=== PATIENT | female | born 1990 | race Caucasian/White ===

== ENCOUNTER 2021-03-21 12:13 | Emergency (ER) | payer BC ==
[2021-03-21 14:59] LABS: Urine Blood Negative (Negative); Urine Glucose Negative (Negative); Urine Protein Negative (Negative); Urine Specific Gravity 1.015 (1.005-1.030)
--- NOTE | 2021-03-21 15:13 | RAD REPORT ---
EXAM DESCRIPTION: RAD - Chest Single View - 03/21/2021 2:37 pm CLINICAL HISTORY: SOB COMPARISON: None TECHNIQUE: AP portable chest image was obtained 03/21/2021 2:37 pm . FINDINGS: Interstitial and minimal alveolar opacities are present. No significant infiltrative disea se identifiable. No failure or volume overload. Heart and vasculature are normal. No measurable pleur al effusion and no pneumothorax. No acute bony abnormality seen. No acute aortic findings suspected. IMPRESSION: Minimal lung parenchymal opacification. Given the patient provided history, mild COVID-1 9 pneumonia is possible.
[2021-03-21 15:40] LABS: Absolute Lymphocytes (CBC) 1.4 K/uL (0.7-4.9); Basophils % 0.5 % (0-1.3); Hematocrit 39.6 % (36.0-45.0); Lymphocytes % 19.7 % (15.3-44.8); MPV 8.9 fL (7.6-11.3); RBC Red Blood Cell Count 4.58 M/uL (3.86-4.86)
[2021-03-21 16:03] LABS: Urine Specific Gravity/Preg 1.015 (1.005-1.030)
[2021-03-21] MEDS ORDERED: BENZONATATE 100 MG CAP PO ONE (16:04)
[2021-03-21 16:17] LABS: ALT/SGPT 44 U/L (12-78); AST/SGOT 31 U/L (15-37); Alkaline Phosphatase 64 U/L (45-117); BUN Blood Urea Nitrogen 6 mg/dL (7-18); Bicarbonate 24 mmol/L (21-32); Bilirubin Direct 0.1 mg/dL (0-0.2); Bilirubin Total 0.5 mg/dL (0.2-1.0); Ferritin 81.8 ng/mL (8-388); Glucose Level 75 mg/dL (74-106); Magnesium 2.1 mg/dL (1.8-2.4); Potassium 3.8 mmol/L (3.5-5.1); Protein, Total 7.6 g/dL (6.4-8.2); Sodium Level 141 mmol/L (136-145)
[2021-03-21 16:53] LABS: Anisocytosis 1+; Blood Morphology Comment NOTED (NOT SEEN); Platelet Estimate ADEQ; Poikilocytosis 1+
[2021-03-21] MEDS ORDERED: CASIRIVIMAB/IMDEVIMAB 10 ML VIAL ONE (17:32)
[2021-03-21] MEDS ORDERED: NA CHLORIDE 0.9% 250 ML ONE (17:32)
--- NOTE | 2021-03-21 18:33 | EDPHYS ---
Physician Documentation [facility] Name: Angella Dean Age: 31 yrs Sex: Female : 1990 Arrival Date: 03/21/2021 Time: 12:17 Bed 10 Private MD: SARMAD Physician Jackson Alexis HPI: 03/21 15:05 This 31 yrs old Female presents to ER via Ambulatory with complaints of cp Shortness Of Breath - covid+. 15:05 The patient has shortness of breath with light activity. cp 15:05 Onset: The symptoms/episode began/occurred gradually. Duration: The symptoms are cp continuous, and are steadily getting worse. The patient's shortness of breath is aggravated by light activity. Associated signs and symptoms: Pertinent positives: non-productive cough, Pertinent negatives: chest pain, diaphoresis, dizziness, fever. Patient reports testing positive for COVID-19 this past Monday, with mild symptoms starting . Patient reports testing positive for COVID-19 in the past and receiving vaccine. 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 - Social history:: Smoking status: Patient denies any tobacco usage or history of. ROS: 15:10 Constitutional: Positive for body aches, Negative for chills, fever, poor PO intake. cp 15:10 Eyes: Negative for injury, pain, redness, and discharge. cp 15:10 ENT: Negative for ear pain, sore throat, difficulty swallowing, difficulty handling secretions. 15:10 Cardiovascular: Negative for chest pain, edema, palpitations. 15:10 Respiratory: Positive for cough, with no reported sputum, shortness of breath, on exertion. Negative for wheezing. 15:10 Abdomen/GI: Positive for nausea, Negative for abdominal pain, vomiting, diarrhea, constipation. 15:10 Neuro: Negative for dizziness, headache, syncope, weakness. 15:10 All other systems are negative. Exam: 15:15 Constitutional: The patient appears in no acute distress, alert, awake, cp non-diaphoretic, non-toxic, well developed, well nourished, obese. 15:15 Head/Face: Normocephalic, atraumatic. cp 15:15 Eyes: Periorbital structures: appear normal, Conjunctiva: normal, no exudate, no injection, Sclera: no appreciated abnormality, Lids and lashes: appear normal, bilaterally. 15:15 ENT: External ear(s): are unremarkable, Nose: is normal, Mouth: Lips: moist, Oral mucosa: moist, Posterior pharynx: Airway: no evidence of obstruction, patent. 15:15 Neck: ROM/movement: is normal, is supple, no meningismus, no nuchal rigidity. 15:15 Chest/axilla: Inspection: normal. 15:15 Cardiovascular: Rate: normal, Rhythm: regular, Edema: is not appreciated, JVD: is not appreciated. 15:15 Respiratory: the patient does not display signs of respiratory distress, Respirations: normal, no use of accessory muscles, no retractions, labored breathing, is not present, Breath sounds: bronchial sounds, that are mild, are heard diffusely, decreased breath sounds, are not appreciated, stridor, is not appreciated, wheezing: is not appreciated. 15:15 Abdomen/GI: Exam negative for discomfort, distension, guarding, Inspection: abdomen appears normal. 15:15 Back: pain, is absent, ROM is normal. 15:15 Neuro: Orientation: to person, place \T\ time. Mentation: is normal, Motor: moves all fours, strength is normal. 16:52 ECG was reviewed by the Attending Physician. cp Vital Signs: 13:05 BP 121 / 99; Pulse 84; Resp 20; Temp 99.0(O); Pulse Ox 99% on R/A; Weight 99.79 kg (R); kg Height 5 ft. 8 in. (172.72 cm) (R); Pain 0/10; 15:37 BP 112 / 66; Pulse 77; Resp 20; Pulse Ox 97% on R/A; em1 13:05 Body Mass Index 33.45 (99.79 kg, 172.72 cm) kg MDM: 14:55 Patient medically screened. cp 16:00 Differential diagnosis: Bronchitis Chronic Obstructive Pulmonary Disease pneumonia, cp Pneumothorax pulmonary edema, Pulmonary Embolism Sepsis. 18:33 Data reviewed: vital signs, nurses notes, lab test result(s), EKG, radiologic studies, cp plain films. 18:33 Test interpretation: by ED physician or midlevel provider: ECG, plain radiologic cp studies. Counseling: I had a detailed discussion with the patient and/or guardian regarding: the historical points, exam findings, and any diagnostic results supporting the discharge/admit diagnosis, lab results, radiology results, to return to the emergency department if symptoms worsen or persist or if there are any questions or concerns that arise at home. Response to treatment: the patient's symptoms have mildly improved after treatment, VSS. Symptoms improved with IV fluids and meds. Patient appears non-toxic and no signs of respiratory distress. Patient maintains oxygen sats 97% on room air. 03/21 14:59 Order name: Urine Dipstick-Ancillary; Complete Time: 15:44 EDMS 03/21 15:04 Order name: Basic Metabolic Panel; Complete Time: 16:18 cp 03/21 17:01 Interpretation: Normal except: CL 111; BUN 6. cp 03/21 15:04 Order name: CBC with Diff; Complete Time: 17:01 cp 03/21 17:01 Interpretation: Normal except: MN% 16.9. cp 03/21 15:04 Order name: LFT's; Complete Time: 16:18 cp 03/21 15:04 Order name: Magnesium; Complete Time: 16:18 cp 03/21 15:04 Order name: CRP; Complete Time: 16:18 cp 03/21 17:01 Interpretation: Abnormal: C-REACTIVE PROT 26.90. cp 03/21 14:26 Order name: Chest Single View; Complete Time: 15:44 EDMS 03/21 15:04 Order name: Ferritin; Complete Time: 16:18 cp 03/21 15:19 Order name: Urine --Ancillary (enter results); Complete Time: 16:18 eb 03/21 16:52 Order name: Manual Differential; Complete Time: 17:01 EDMS 03/21 15:04 Order name: Urine Test (obtain specimen); Complete Time: 15:17 cp 03/21 15:04 Order name: EKG; Complete Time: 15:04 cp 03/21 15:04 Order name: Cardiac monitoring; Complete Time: 17:54 cp 03/21 15:04 Order name: EKG - Nurse/Tech; Complete Time: 17:54 cp 03/21 15:04 Order name: IV Saline Lock; Complete Time: 15:30 cp 03/21 15:04 Order name: Labs collected and sent; Complete Time: 15:30 cp 03/21 15:04 Order name: O2 Per Protocol; Complete Time: 17:54 cp 03/21 15:04 Order name: O2 Sat Monitoring; Complete Time: 17:54 cp EC:52 Rate is 75 beats/min. Rhythm is regular. TX interval is normal. QRS interval is normal. cp QT interval is normal. T waves are Inverted in leads III, V2, V3. Interpreted by me. Reviewed by me. Administered Medications: 15:48 Drug: Tessalon Perle (benzonatate) 200 mg Route: PO; iw 17:25 Drug: REGEN-COV Dose Pack 120 mg/mL-120 mg/mL (EUA) 260 ml Route: IV; Rate: calculated iw rate; Site: right forearm; 18:31 Drug: SOLU-Medrol (methylPrednisoLONE) 125 mg Route: IVP; Site: right forearm; iw 18:31 Drug: Ibuprofen 800 mg Route: PO; iw Disposition: 03/22 07:46 Co-signature as Attending Physician, Jackson Alexis MD I agree with the assessment and erika plan of care. Disposition Summary: 03/21/21 18:33 Discharge Ordered Location: Home cp Problem: new cp Symptoms: have improved cp Condition: Stable cp Diagnosis - Other viral pneumonia cp - SARS-associated coronavirus as the cause of diseases classified elsewhere cp Followup: cp - With: Private Physician - When: 2 - 3 days - Reason: Worsening of condition Discharge Instructions: - Discharge Summary Sheet cp - Form - Excuse from Work, School, or Physical Activity cp - Frequently Asked Questions About COVID-19 Vaccination - [facility] cp - COVID-19: Quarantine vs. Isolation - [facility] cp - Prevent the Spread of COVID-19 if You Are Sick - [facility] cp Forms: - Medication Reconciliation Form cp - Thank You Letter cp - Antibiotic Education cp - Prescription Opioid Use cp Prescriptions: - albuterol sulfate 90 mcg/actuation Inhalation HFA aerosol inhaler - inhale 2 puff by INHALATION route every 6 hours; 1 Inhaler; Refills: 0, Product cp Selection Permitted - Zofran 4 mg Oral Tablet - take 1 tablet by ORAL route every 12 hours As needed; 20 tablet; Refills: 0, cp Product Selection Permitted - Tessalon Perles 100 mg Oral Capsule - take 1 capsule by ORAL route every 8 hours As needed; 30 capsule; Refills: 0, cp Product Selection Permitted - Zithromax Z-Keith 250 mg Oral Tablet - take 1 tablet by ORAL route as directed for 5 days Day 1 - take two (2) tablets cp one time. Day 2, 3, 4 , 5 take one (1) tablet once daily.; 6 tablet; Refills: 0, Product Selection Permitted - Prednisone 20 mg Oral Tablet - take 2 tablets by ORAL route once daily for 5 days; 10 tablet; Refills: 0, cp Product Selection Permitted - ivermectin 3 mg Oral tablet - take 5 tablet by ORAL route every other day; 10 tablet; Refills: 0, Product cp Selection Permitted Signatures: Dispatcher [employer] EDIL Jackson Alexis MD MD cha Williams, Irene, RN RN Jackson Ag PA PA cp Ivette Zapien, ALTON RN kg Corrections: (The following items were deleted from the chart) 03/21 13:10 13:07 Allergies: No Known Allergies; kg kg 14:26 13:14 Chest Pa And Lat (2 Views)+[email or web address] ordered. EDIL EDMS
--- NOTE | 2021-03-21 18:33 | ER ---
Nurse's Notes [facility] Name: Angella Dean Age: 31 yrs Sex: Female : 1990 Arrival Date: 03/21/2021 Time: 12:17 Bed 10 Private MD: Diagnosis: Other viral pneumonia;SARS-associated coronavirus as the cause of diseases classified elsewhere Presentation: 03/21 13:05 Chief complaint: Patient states: Cough, SOB, Fever x 2 days. COVID + 03/19. Coronavirus kg screen: Client denies travel out of the [place] in the last 14 days. At this time, unable to obtain information related to travel outside the [place] Ebola Screen: Patient negative for fever greater than or equal to 101.5 degrees Fahrenheit, and additional compatible Ebola Virus Disease symptoms Patient denies exposure to infectious person. Patient denies travel to an Ebola-affected area in the 21 days before illness onset. Initial Sepsis Screen: Does the patient meet any 2 criteria? No. Patient's initial sepsis screen is negative. Does the patient have a suspected source of infection? No. Patient's initial sepsis screen is negative. Risk Assessment: Do you want to hurt yourself or someone else? Patient reports no desire to harm self or others. Onset of symptoms was March 19, 2021. 13:05 Method Of Arrival: Ambulatory kg 13:05 Acuity: TAMIKA 4 kg 15:34 Acuity: TAMIKA 3 iw Triage Assessment: 13:07 General: Appears in no apparent distress. Behavior is calm, cooperative, appropriate kg for age, quiet. Pain: Denies pain. Respiratory: Reports shortness of breath at rest on exertion cough that is non-productive, Onset: The symptoms/episode began/occurred yesterday, the patient has mild shortness of breath. 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 - Social history:: Smoking status: Patient denies any tobacco usage or history of. Screenin:11 Abuse screen: Denies threats or abuse. Denies injuries from another. Nutritional kg screening: No deficits noted. Tuberculosis screening: No symptoms or risk factors identified. Fall Risk None identified. Assessment: 13:14 Respiratory: Airway is patent Trachea midline Respiratory effort is even, unlabored. kg Vital Signs: 13:05 BP 121 / 99; Pulse 84; Resp 20; Temp 99.0(O); Pulse Ox 99% on R/A; Weight 99.79 kg (R); kg Height 5 ft. 8 in. (172.72 cm) (R); Pain 0/10; 15:37 BP 112 / 66; Pulse 77; Resp 20; Pulse Ox 97% on R/A; em1 13:05 Body Mass Index 33.45 (99.79 kg, 172.72 cm) kg ED Course: 12:17 Patient arrived in ED. as 13:07 Triage completed. kg 13:07 Arm band placed on left wrist. kg 13:11 Patient has correct armband on for positive identification. kg 14:37 Chest Single View In Process Unspecified. EDMS 14:50 Jackson Ag PA is PHCP. cp 14:50 Jackson Alexis MD is Attending Physician. cp 15:02 Kylah Vang, RN is Primary Nurse. iw 15:30 Initial lab(s) drawn, by me, sent to lab. Inserted saline lock: 20 gauge in right em1 forearm, using aseptic technique. Blood collected. 16:45 EKG done, by ED staff, reviewed by Jackson DE LA GARZA. mb4 Administered Medications: 15:48 Drug: Tessalon Perle (benzonatate) 200 mg Route: PO; iw 17:25 Drug: REGEN-COV Dose Pack 120 mg/mL-120 mg/mL (EUA) 260 ml Route: IV; Rate: calculated iw rate; Site: right forearm; 18:31 Drug: SOLU-Medrol (methylPrednisoLONE) 125 mg Route: IVP; Site: right forearm; iw 18:31 Drug: Ibuprofen 800 mg Route: PO; iw Outcome: 18:33 Discharge ordered by . cp 18:54 Patient left the ED. iw Signatures: Dispatcher [employer] EDMS Ham, Dorinda as Taj, Kylah, RN RN iw Ham, Emir em1 Jackson Ag PA PA cp Baxter, Mackenzie mb4 Ivette Zapien RN RN kg Corrections: (The following items were deleted from the chart) 13:10 13:07 Allergies: No Known Allergies; kg kg
[2021-03-21] MEDS ORDERED: METHYLPREDNISOLONE 125 MG INJ ONE (18:49)
[2021-03-21] MEDS ORDERED: IBUPROFEN 400 MG TAB ONE (18:49)
[2021-03-21 19:01] VITALS: TEMP 99
[2021-03-21 19:02] VITALS: BP 112/66; O2SAT 97
== END 2021-03-21 18:54 | disposition home or self-care (01) ==
LOC: ER 12:13
DX: J12.89 Other viral pneumonia (principal); Z88.8 Allergy status to other drugs, medicaments and biological substances
CPT/HCPCS: 93005; 85025; 80048; 36415; 83735; 81025; 80076; 81003; 82728; 86140; 71045; 96375; 96374; 99284; J7050; J2930

== ENCOUNTER 2022-02-06 21:25 | Emergency (ER) | payer BC, OTHER ==
[2022-02-06] MEDS ORDERED: MORPHINE 2 MG/ML SYR ONE (22:16)
[2022-02-06] MEDS ORDERED: NA CHLORIDE 0.9% 1,000 ML ONE (22:16)
[2022-02-06] MEDS ORDERED: ONDANSETRON 4 MG/2 ML VIAL ONE (22:16)
[2022-02-06] MEDS ORDERED: FAMOTIDINE 20 MG/2 ML VIAL IV ONE (22:16)
[2022-02-06 23:03] LABS: Absolute Lymphocytes (CBC) 3.3 K/uL (0.7-4.9); Hematocrit 41.1 % (36.0-45.0); Lymphocytes % 31.2 % (15.3-44.8); MCV 86.1 fL (80-100); RBC Red Blood Cell Count 4.78 M/uL (3.86-4.86)
[2022-02-06 23:06] LABS: Bilirubin Total 0.5 mg/dL (0.2-1.0); Potassium 4.1 mmol/L (3.5-5.1); Protein, Total 7.5 g/dL (6.4-8.2)
[2022-02-06 23:36] LABS: Urine Blood Negative (Negative); Urine Glucose Negative (Negative); Urine Protein Negative (Negative)
[2022-02-07] MEDS ORDERED: ONDANSETRON 4 MG/2 ML VIAL ONE (00:10)
[2022-02-07] MEDS ORDERED: CEFTRIAXONE 1000 MG/VIAL ONE (00:56)
[2022-02-07] MEDS ORDERED: NA CHLORIDE 0.9% 1,000 ML ONE (01:44)
--- NOTE | 2022-02-07 02:37 | RAD REPORT ---
EXAM DESCRIPTION: CTAbdomen Pelvis W Contrast - 02/07/2022 1:17 am CLINICAL HISTORY: Abdominal pain. Abdominal pain, acute, nonlocalized COMPARISON: No comparisons TECHNIQUE: Biphasic CT imaging of the abdomen and pelvis was performed with 100 ml non-ionic IV cont rast. All CT scans are performed using dose optimization technique as appropriate and may include automated exposure control or mA/KV adjustment according to patient size. FINDINGS: The lung bases are clear. The liver demonstrates no focal mass or biliary dilatation. Cholecystectomy clips. 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 The pancreas, adrenal glands and kidneys within normal limits. Postsurgic al changes are present about the stomach. No bowel obstruction, free air, intra-abdominal free fluid or abscess. Small volume pelvic free fluid . The appendix is normal. No evidence of significant lymphadenopathy. No suspicious bony findings. IMPRESSION: No acute intra-abdominal or pelvic finding. 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 There are adjacent surgical clips present.
--- NOTE | 2022-02-07 02:51 | ER ---
Nurse's Notes [facility] Name: Angella Dean Age: 31 yrs Sex: Female : 1990 Arrival Date: 02/06/2022 Time: 21:29 Bed 24 Private MD: Diagnosis: Abdominal pain, unspecified Presentation: 02/06 21:45 Chief complaint: Patient states: I had gastric sleeve surgery 3 weeks ago. I have had jb4 white stool the past 4 days, and bloating and pain. I told my surgeon and he told me to come to the ER. Coronavirus screen: At this time, the client does not indicate any symptoms associated with coronavirus-19. Ebola Screen: No symptoms or risks identified at this time. Initial Sepsis Screen: Does the patient meet any 2 criteria? No. Patient's initial sepsis screen is negative. Does the patient have a suspected source of infection? No. Patient's initial sepsis screen is negative. Risk Assessment: Do you want to hurt yourself or someone else? Patient reports no desire to harm self or others. Onset of symptoms was February 06, 2022. Transition of care: patient was not received from another setting of care. 21:45 Method Of Arrival: Ambulatory jb4 21:45 Acuity: TAMIKA 3 jb4 Triage Assessment: 02/07 03:16 General: Appears in no apparent distress. Behavior is calm, cooperative. bb Historical: - Allergies: 02/06 21:47 Skelaxin; jb4 21:47 Latex, Natural Rubber; jb4 - Home Meds: 21:47 None [Active]; jb4 - PMHx: 21:47 None; jb4 - PSHx: 21:47 Ovarian torsion; right ankle sx; Right rotator cuff sx; Tonsillectomy; Gastric sleeve; jb4 - Immunization history:: Adult Immunizations up to date. - Social history:: Smoking status: Patient denies any tobacco usage or history of. - Family history:: not pertinent. Screenin:53 Abuse screen: Denies threats or abuse. Denies injuries from another. Nutritional eh3 screening: No deficits noted. Tuberculosis screening: No symptoms or risk factors identified. Fall Risk None identified. Assessment: 22:53 Reassessment: No changes from previously documented assessment. Pain: Complains of pain eh3 in abdomen Pain does not radiate. Pain currently is 5 out of 10 on a pain scale. Quality of pain is described as crampy, pressure, tender, Pain began 2-3 days ago. Is continuous. GI: Bowel sounds present in right upper quadrant and left upper quadrant hypoactive in right lower quadrant and left lower quadrant Abd is soft Abdomen is tender to palpation in right upper quadrant and left upper quadrant. 02/07 00:57 Reassessment: Patient and/or family updated on plan of care and expected duration. Pain bb level reassessed. pt to CT via stretcher accompanied by instrumentation and controls technician. IV site intact, patent no erythema or edema noted. 03:15 Reassessment: Patient is alert, oriented x 3, equal unlabored respirations, skin bb warm/dry/pink. pt verbalized understanding of and agrees to plan of care discharge instructions given pt ambulated with steady gait to exit. Vital Signs: 02/06 21:45 BP 107 / 69; Pulse 74; Resp 16; Temp 98.3(TE); Pulse Ox 99% on R/A; Weight 99.79 kg jb4 (R); Height 5 ft. 8 in. (172.72 cm) (R); Pain 0/10; 22:55 BP 106 / 79; Pulse 75; Resp 16; Pulse Ox 100% on R/A; eh3 23:50 BP 106 / 79; Pulse 73; Resp 18; Pulse Ox 97% on R/A; 1 02/07 02:51 BP 96 / 68; Pulse 72; Resp 16; Temp 98.6; Pulse Ox 100% on R/A; 02/06 21:45 Body Mass Index 33.45 (99.79 kg, 172.72 cm) jb4 ED Course: 02/06 21:29 Patient arrived in ED. bp1 21:47 Triage completed. jb4 21:47 Arm band placed on right wrist. jb4 21:54 Jackson Alexis MD is Attending Physician. [facility] 22:[address], ALTON is Primary Nurse. [facility] 22:26 No provider procedures requiring assistance completed. Inserted saline lock: 20 gauge eh3 in left antecubital area, using aseptic technique. Blood collected. 22:51 CBC with Diff Sent. eh3 22:51 CMP Sent. eh3 22:51 Lipase Sent. eh3 22:53 Patient has correct armband on for positive identification. Placed in gown. Bed in low eh3 position. Call light in reach. Side rails up X2. 23:27 Troponin High Sensitivity Sent. eh3 23:51 No apparent distress. Resting quietly. Awaiting lab results, Awaiting CT Scan. [facility] 02/07 01:19 CT Abd/Pelvis - PO and IV Contrast In Process Unspecified. EDMT 02:49 Eligio Pfeiffer MD is Referral Physician. erika 03:16 IV discontinued, intact, bleeding controlled, No redness/swelling at site. Pressure bb dressing applied. Administered Medications: 02/06 22:30 Drug: Pepcid (famotidine) 20 mg Route: IVP; Site: left antecubital; 3 22:30 Drug: NS 0.9% 1000 ml Route: IV; Rate: 1 bolus; Site: left antecubital; eh3 22:30 Drug: morphine 2 mg Route: IVP; Infused Over: 4 mins; Site: left antecubital; 3 22:30 Drug: Zofran (Ondansetron) 4 mg Route: IVP; Site: left antecubital; 3 02/07 00:56 Drug: Rocephin (cefTRIAXone) 1 grams Route: IV; Rate: per protocol; Site: left bb antecubital; 01:01 Follow up: IV Status: Completed infusion; IV Intake: 10ml bb 01:40 Drug: NS 0.9% 1000 ml Route: IV; Rate: 1 bolus; Site: left antecubital; bb 02:36 Follow up: IV Status: Completed infusion; IV Intake: 975ml bb Medication: 02/06 22:53 VIS not applicable for this client. 3 Intake: 02/07 01:01 IV: 10ml; Total: 10ml. bb 02:36 IV: 975ml; Total: 985ml. bb Outcome: 02:50 Discharge ordered by . erika 03:16 Discharged to home ambulatory. bb 03:16 Condition: stable 03:16 Discharge instructions given to patient, Instructed on discharge instructions, follow up and referral plans. medication usage, Demonstrated understanding of instructions, follow-up care, medications, Prescriptions given X 2. 03:17 Patient left the ED. bb Signatures: Dispatcher [employer] EDMT Jackson Alexis MD MD cha Ballard, Brenda RN RN Yobani Irene, RN RN [email or web address] Charisse Whittaker [facility] Yazmin Rivers Katy Reagan [address], RN RN [id number]
--- NOTE | 2022-02-07 02:51 | EDPHYS ---
Physician Documentation [facility] Name: Angella Dean Age: 31 yrs Sex: Female : 1990 Arrival Date: 02/06/2022 Time: 21:29 Bed 24 Private MD: SARMAD Physician Jackson Alexis HPI: 02/07 02:44 This 31 yrs old Female presents to ER via Ambulatory with complaints of erika Abdominal Pain, Abdominal Bloating, White Stool. 02:44 The patient presents with abdominal pain in the upper abdomen, in the lower abdomen. erika Onset: The symptoms/episode began/occurred 3 day(s) ago. The symptoms do not radiate. Associated signs and symptoms: none. The symptoms are described as crampy. Modifying factors: The symptoms are alleviated by nothing, the symptoms are aggravated by nothing. Severity of pain: At its worst the pain was mild in the emergency department the pain is unchanged. The patient has not experienced similar symptoms in the past. Historical: - Allergies: 02/06 21:47 Skelaxin; jb4 21:47 Latex, Natural Rubber; jb4 - Home Meds: 21:47 None [Active]; jb4 - PMHx: 21:47 None; jb4 - PSHx: 21:47 Ovarian torsion; right ankle sx; Right rotator cuff sx; Tonsillectomy; Gastric sleeve; jb4 - Immunization history:: Adult Immunizations up to date. - Social history:: Smoking status: Patient denies any tobacco usage or history of. - Family history:: not pertinent. ROS: 02/07 02:44 Constitutional: Negative for fever, chills, and weight loss, Eyes: Negative for injury, erika pain, redness, and discharge, ENT: Negative for injury, pain, and discharge, Neck: Negative for injury, pain, and swelling, Cardiovascular: Negative for chest pain, palpitations, and edema, Respiratory: Negative for shortness of breath, cough, wheezing, and pleuritic chest pain, Back: Negative for injury and pain, : Negative for injury, bleeding, discharge, and swelling, MS/Extremity: Negative for injury and deformity, Skin: Negative for injury, rash, and discoloration, Neuro: Negative for headache, weakness, numbness, tingling, and seizure. Abdomen/GI: Positive for abdominal pain, white chalky stools. Exam: 02:44 Constitutional: This is a well developed, well nourished patient who is awake, alert, erika and in no acute distress. Head/Face: Normocephalic, atraumatic. Eyes: Pupils equal round and reactive to light, extra-ocular motions intact. Lids and lashes normal. Conjunctiva and sclera are non-icteric and not injected. Cornea within normal limits. Periorbital areas with no swelling, redness, or edema. ENT: Nares patent. No nasal discharge, no septal abnormalities noted. Tympanic membranes are normal and external auditory canals are clear. Oropharynx with no redness, swelling, or masses, exudates, or evidence of obstruction, uvula midline. Mucous membranes moist. Neck: Trachea midline, no thyromegaly or masses palpated, and no cervical lymphadenopathy. Supple, full range of motion without nuchal rigidity, or vertebral point tenderness. No Meningismus. Chest/axilla: Normal chest wall appearance and motion. Nontender with no deformity. No lesions are appreciated. Cardiovascular: Regular rate and rhythm with a normal S1 and S2. No gallops, murmurs, or rubs. Normal PMI, no JVD. No pulse deficits. Respiratory: Lungs have equal breath sounds bilaterally, clear to auscultation and percussion. No rales, rhonchi or wheezes noted. No increased work of breathing, no retractions or nasal flaring. Abdomen/GI: Soft, non-tender, with normal bowel sounds. No distension or tympany. No guarding or rebound. No evidence of tenderness throughout. Back: No spinal tenderness. No costovertebral tenderness. Full range of motion. Skin: Warm, dry with normal turgor. Normal color with no rashes, no lesions, and no evidence of cellulitis. MS/ Extremity: Pulses equal, no cyanosis. Neurovascular intact. Full, normal range of motion. Neuro: Awake and alert, GCS 15, oriented to person, place, time, and situation. Cranial nerves II-XII grossly intact. Motor strength 5/5 in all extremities. Sensory grossly intact. Cerebellar exam normal. Normal gait. Psych: Awake, alert, with orientation to person, place and time. Behavior, mood, and affect are within normal limits. 02:44 Abdomen/GI: Inspection: abdomen appears normal, Bowel sounds: normal, Palpation: abdomen is soft and non-tender, Liver: no appreciated palpable abnormalities, Hernia: not appreciated. Vital Signs: 02/06 21:45 BP 107 / 69; Pulse 74; Resp 16; Temp 98.3(TE); Pulse Ox 99% on R/A; Weight 99.79 kg jb4 (R); Height 5 ft. 8 in. (172.72 cm) (R); Pain 0/10; 22:55 BP 106 / 79; Pulse 75; Resp 16; Pulse Ox 100% on R/A; eh3 23:50 BP 106 / 79; Pulse 73; Resp 18; Pulse Ox 97% on R/A; bh1 02/07 02:51 BP 96 / 68; Pulse 72; Resp 16; Temp 98.6; Pulse Ox 100% on R/A; wm 02/06 21:45 Body Mass Index 33.45 (99.79 kg, 172.72 cm) jb4 MDM: 02/06 21:54 Patient medically screened. [facility] 02/07 02:48 Differential diagnosis: gastritis, non-specific abd pain, Peptic Ulcer Disease, urinary erika tract infection. Data reviewed: vital signs, nurses notes, lab test result(s), radiologic studies, CT scan. Data interpreted: campus monitor: rate is 73 beats/min, rhythm is regular, Pulse oximetry: on room air is 97 %. Test interpretation: by ED physician or midlevel provider: ECG, plain radiologic studies. Counseling: I had a detailed discussion with the patient and/or guardian regarding: the historical points, exam findings, and any diagnostic results supporting the discharge/admit diagnosis, the presence of at least one elevated blood pressure reading (>120/80) during this emergency department visit, lab results, radiology results, the need for outpatient follow up, for definitive care, a family practitioner, a circular knife cutter machine. 02/06 21:56 Order name: CBC with Diff; Complete Time: 00:25 [facility] 02/06 21:56 Order name: CMP; Complete Time: 23:53 [facility] 02/06 21:56 Order name: Lipase; Complete Time: 00:25 [facility] 02/06 23:01 Order name: Troponin High Sensitivity; Complete Time: 00:25 [facility] 02/06 23:36 Order name: Urine Dipstick-Ancillary; Complete Time: 00:25 [facility] 02/07 00:25 Order name: Urine Culture [facility] 02/06 21:56 Order name: CT Abd/Pelvis - PO and IV Contrast; Complete Time: 02:42 [facility] 02/06 21:56 Order name: IV Saline Lock; Complete Time: 22:26 [facility] 02/06 21:56 Order name: Labs collected and sent; Complete Time: 22:27 [facility] 02/06 21:56 Order name: Urine Dipstick-Ancillary (obtain specimen); Complete Time: 23:43 [facility] 02/06 21:56 Order name: Urine Test (obtain specimen); Complete Time: 23:43 [facility] 02/06 23:01 Order name: EKG; Complete Time: 23:04 [facility] 02/06 23:01 Order name: EKG - Nurse/Tech; Complete Time: 23:27 [facility] Administered Medications: 02/06 22:30 Drug: Pepcid (famotidine) 20 mg Route: IVP; Site: left antecubital; [facility] 22:30 Drug: NS 0.9% 1000 ml Route: IV; Rate: 1 bolus; Site: left antecubital; [facility] 22:30 Drug: morphine 2 mg Route: IVP; Infused Over: 4 mins; Site: left antecubital; [facility] 22:30 Drug: Zofran (Ondansetron) 4 mg Route: IVP; Site: left antecubital; [facility] 02/07 00:56 Drug: Rocephin (cefTRIAXone) 1 grams Route: IV; Rate: per protocol; Site: left antecubital; 01:01 Follow up: IV Status: Completed infusion; IV Intake: 10ml bb 01:40 Drug: NS 0.9% 1000 ml Route: IV; Rate: 1 bolus; Site: left antecubital; 02:36 Follow up: IV Status: Completed infusion; IV Intake: 975ml bb Disposition Summary: 02/07/22 02:50 Discharge Ordered Location: Home erika Problem: new erika Symptoms: have improved erika Condition: Stable erika Diagnosis - Abdominal pain, unspecified erika Followup: erika - With: Private Physician - When: 2 - 3 days - Reason: Recheck today's complaints, Continuance of care, Re-evaluation by your physician Followup: erika - With: Eligio Pfeiffer MD - When: 2 - 3 days - Reason: Recheck today's complaints, Continuance of care, Re-evaluation by your physician Discharge Instructions: - Abdominal Pain, Adult erika - Discharge Summary Sheet jb4 Forms: - Medication Reconciliation Form erika - Thank You Letter erika - SBAR form jb4 - Antibiotic Education [facility] - Prescription Opioid Use [facility] Prescriptions: - Zofran 4 mg Oral Tablet - take 1 tablet by ORAL route every 12 hours As needed; 20 tablet; Refills: 0, erika Product Selection Permitted - dicyclomine 20 mg Oral Tablet - take 1 tablet by ORAL route 4 times per day; 28 tablet; Refills: 0, Product [facility] Selection Permitted Signatures: Dispatcher [employer] EDJackson Tinsley MD MD cha Ballard, Brenda, RN RN Nav Hobbs, WIRE COMMUNICATIONS ENGINEER-C WIRE COMMUNICATIONS ENGINEER-Cla1 Yobani John RN RN jb Katy Reagan [facility]
[2022-02-07 03:32] VITALS: BP 96/68; TEMP 98.6; O2SAT 100
--- NOTE | 2022-02-07 13:46 | EKG ---
Test Date: 2022-02-06 Test Time: 23:22:03 Tour Driver: PATRICK MEASUREMENT RESULTS: Intervals: Rate: 85 [place]: 164 QRSD: 86 QT: 408 QTc: 485 [place]: P: 71 [place]: 164 QRS: 71 T: 69 INTERPRETIVE STATEMENTS: Normal sinus rhythm Prolonged QT Abnormal ECG Compared to ECG 03/21/2021 16:46:42 Prolonged QT interval now present ST (T wave) deviation no longer present Electronically Signed On 02-07-22 13:44:56 CDT by Moises Ridley
== END 2022-02-07 03:17 | disposition home or self-care (01) ==
LOC: ER 21:25
DX: R10.9 Unspecified abdominal pain (principal); Z88.8 Allergy status to other drugs, medicaments and biological substances; Z91.040 Latex allergy status; Z91.048 Other nonmedicinal substance allergy status
CPT/HCPCS: 96361; 93005; 87088; 85025; 87086; 36415; 81003; 84484; 83690; 80053; 74177; 96375; 96374; 99284; Q9967; J2270; J7030 ×2; J2405 ×2; J3490

== ENCOUNTER 2022-08-25 19:42 | Emergency (ER) | payer BC, OTHER ==
--- OUTSIDE RECORDS SUMMARY | 2022-08-25 19:46 | XMS REPORT | Continuity of Care Document ---
:1990 Author Organization [facility] t Address [address] [place] [address] Care Team Providers Name Role Phone Malick Brewer MD, Cosme Scott Primary Care Physician [phone] CIRO AUGUST Attending Clinician Unavailable ABRAM COOK Attending Clinician Unavailable Nataly Villareal Attending Clinician [phone] Nav BAKER, Alisa Damico Attending Clinician Bhakti Manning Attending Clinician Unavailable Earle Ayers Attending Clinician [phone] Bhakti Manning Admitting Clinician Unavailable Payers Payer Name Policy Type Policy Number Effective Date Expiration Date Fely justice [employer] [id number] 2021 2021 00:00:00 00:00:00 [employer] [id number] 2022 PREFERRED CARE 00:00:00 Problems Condition Condition Condition Status Onset Resolution Last Treating Co mments Source Name Details Category Date Date Treatment Clinician Date Altered Altered Problem 2015-03-01 Me moria bowel bowel 07-31 04:01:17 l function function 00:00: Jeremy nicole (finding) (finding) 00 07/31/2014 Problem 03/01/2015 <sup>1</serrano p>5-10 BMs A DAY, SOMETIMES LOOSE, SOMETIMES NORMAL [facility] ABDOMINAL/ ABDOMINAL Diagnosis Active 2013-11-22 Memoria BACK PAIN /BACK PAIN 18 16:46:00 l Active 00:00: Shady 10/15/2013 00 [facility] [place] Cyst of Cyst of Problem Resolve 2013-10-18 M emoria ovary ovary d 23:16:40 l (disorder) (disorder) He rmann Resolved Problem 10/18/2013 [facility] [place] Backache Backache Problem 2015-03-01 Memoria (finding) (finding) 04:01:17 l Problem [place] 03/01/2015 [facility] History of Past Illness Condition Condition Condition Status Onset Resolution Last Treating Co mments Source Name Details Category Date Date Treatment Clinician Date Discharge Problem 2013-10-18 2013-10-18 Memoria Diagnosis: Discharge 10-15 23:16:40 23:16:40 l Lumbar Diagnosis: 05:00: Jeremy n Back Pain, Lumbar 00 Pelvic Back Pain, Pain, Pelvic Ovarian Pain, Cyst Ovarian Cyst 10/15/2013 10/18/2013 [facility] Allergies, Adverse Reactions, Alerts Allergy Allergy Status Severity Reaction(s) Onset Inactive Treating Comm ents Source Name Type Date Date Clinician Latex Propensi Active Rash 2021-07 [facility] to [facility] adverse 00:00: Hospita reaction 00 l s to drug Mushroom Propensi Active Swelling Meth gloria ty to 4-11 st adverse 00:00: Hospita reaction 00 l s to drug Metaxalo Propensi Active Swelling Meth gloria ne ty to 4-11 st adverse 00:00: Hospita reaction 00 l s to drug Skelaxin Skelaxin Active Weal Memori a (disorder) jasmin Caruso mushroom mushroom Active Weal Memori a s s (disorder) jasmin Caruso Social History Social Habit Start Date Stop Date Quantity Comments Source Tobacco use and 2022-05-11 2022-05-11 Smokeless tobacco Me [facility] exposure 00:00:00 00:00:00 non-user Hospital Alcohol intake 2022-05-11 2022-05-11 Lifetime [facility] 00[facility]00 [facility]-drinker Hospital (finding) Sex Assigned At [birth year] [facility] 00:[facility]00 Hospital Smoking Status Start Date Stop Date Source Never smoked tobacco [facility] Social History 2013-10-16 01:28:18 2013-10-16 01:28:18 [facility] Medications Ordered Filled Start Stop Current Ordering Indication Dosage Frequency Signature Comments Components Source Medication Medication Date Date Medication? Clinician (SIG) Name Name jean claude 2021-07 Yes 325mg Q6H Take 1 Met hodi en 0-[address] (TYLENOL) 08:15: (325 mg Hospi ta 325 MG 43 total) by l tablet mouth every 6 (six) hours as needed for fever. [facility] [place] 290 mL, Memoria Medication 02-27 Patricia Soln-IV, l 12:25: IV, Once, Shady 00 first dose 02/27/15 7:25:00 CDT, stop date 02/27/15 7:25:00 CDT Misc No Tu 290 mL, Memoria Medication 02-27 Patricia Soln-IV, l 12:25: IV, Once, Shady 00 first dose 02/27/15 7:25:00 CDT, stop date 02/27/15 7:25:00 CDT propofol No Tu 60 mg = 6 Mem oria 02-27 Patricia mL, l 12:13: Emulsion, [place] 00 IV, Once, first dose 02/27/15 7:13:00 CDT, stop date 02/27/15 7:13:00 CDT propofol No Tu 60 mg = 6 Mem oria 02-27 Patricia mL, l 12:13: Emulsion, [place] 00 IV, Once, first dose 02/27/15 7:13:00 CDT, stop date 02/27/15 7:13:00 CDT propofol No Tu 60 mg = 6 Mem oria 02-27 Patricia mL, l 12:11: Emulsion, Shady 00 IV, Once, first dose 02/27/15 7:11:00 CDT, stop date 02/27/15 7:11:00 CDT propofol No Tu 60 mg = 6 Mem oria 7 Patricia mL, l 12:11: Emulsion, [place] 00 IV, Once, first dose 02/27/15 7:11:00 CDT, stop date 02/27/15 7:11:00 CDT propofol No Tu 60 mg = 6 Mem oria 7- Patricia mL, l 12:08: Emulsion, Shady 00 IV, Once, first dose 02/27/15 7:08:00 CDT, stop date 02/27/15 7:08:00 CDT propofol No Tu 60 mg = 6 Mem oria 7- Patricia mL, l 12:08: Emulsion, [place] 00 IV, Once, first dose 02/27/15 7:08:00 CDT, stop date 02/27/15 7:08:00 CDT propofol No Tu 60 mg = 6 Mem oria - Patricia mL, l 12:05: Emulsion, [place] 00 IV, Once, first dose 02/27/15 7:05:00 CDT, stop date 02/27/15 7:05:00 CDT propofol No Tu 60 mg = 6 Mem oria 02-27 Patricia mL, l 12:05: Emulsion, [place] 00 IV, Once, first dose 02/27/15 7:05:00 CDT, stop date 02/27/15 7:05:00 CDT lidocaine No Tu 3 mL, Memori a 02-27 Patricia Injection, l 12:02: IV, Once, Shady 00 first dose 02/27/15 7:02:00 CDT, stop date 02/27/15 7:02:00 CDT propofol No Tu 140 mg = Syd villa 02-27 Patricia 14 mL, l 12:02: Emulsion, Shady 00 IV, Once, first dose 02/27/15 7:02:00 CDT, stop date 02/27/15 7:02:00 CDT lidocaine No Tu 3 mL, Memori a 02-27 Patricia Injection, l 12:02: IV, Once, Shady 00 first dose 02/27/15 7:02:00 CDT, stop date 02/27/15 7:02:00 CDT propofol No Tu 140 mg = Syd villa 02-27 Patricia 14 mL, l 12:02: Emulsion, Shady 00 IV, Once, first dose 02/27/15 7:02:00 CDT, stop date 02/27/15 7:02:00 CDT Lidocaine No Matthew 0.2 mL, Me moria 2% 0.2 mL 02-27 You Injection, l IV Start 11:35: Subcutaneo [facility] maier [[facility]] us, Once PRN for other (see comment), first dose 02/27/15 6:35:00 CDT LR 1,000 mL No Matthew 1,000 mL, Memoria 02-27 You IV, 30 l 11:35: mL/hr, [place] 00 start date 02/27/15 6:35:00 CDT Lidocaine No Matthew 0.2 mL, Me moria 2% 0.2 mL 02-27 You Injection, l IV Start 11:35: Subcutaneo [facility] maier [[facility]] 00 us, Once PRN for other (see comment), first dose 02/27/15 6:35:00 CDT LR 1,000 mL No Matthew 1,000 mL, Memoria 02-27 You IV, 30 l 11:35: mL/hr, [place] 00 start date 02/27/15 6:35:00 CDT naproxen Yes 500 mg = 1 Mem oria 500 mg oral 3-19 tab, PO, l tablet 04:48: BID, Pain, Shaina nn 00 # 30 tab, 0 Refill(s) Acetaminoph Yes 1 tab, PO, Memoria en 325 MG / 3-19 Q6H, pain, l Hydrocodone 04:48: # 24 tab, H ermann Bitartrate 00 0 10 MG Oral Refill(s) Tablet [Nelson 10/325] naproxen Yes 500 mg = 1 Mem oria 500 mg oral 3-19 tab, PO, l tablet 04:48: BID, Pain, Shaina nn 00 # 30 tab, 0 Refill(s) Acetaminoph Yes 1 tab, PO, Memoria en 325 MG / 3-19 Q6H, pain, l Hydrocodone 04:48: # 24 tab, H ermann Bitartrate 00 0 10 MG Oral Refill(s) Tablet [Nelson 10/325] Morphine No 4 mg, 2 Memori a 3-19 mL, Route: l 04:24: IVP, Drug [place] 00 form: INJ, ONCE, Dosing Weight 104.545, kg, Priority: STAT, Start date: 10/15/13 23:24:00, Stop date: 10/15/13 23:24:00(S foreign as:MORPhin e Sulfate) Morphine 2014-0 No 4 mg, 2 Memori a 3-19 mL, Route: l 04:24: IVP, Drug Shady 00 form: INJ, ONCE, Dosing Weight 104.545, kg, Priority: STAT, Start date: 10/15/13 23:24:00, Stop date: 10/15/13 23:24:00(S foreign as:MORPhin e Sulfate) Zofran 2014-0 No 4 mg, Memoria 3-19 Route: l 02:09: IVP, ONCE, Dosing Weight 104.545, kg, Start date: 10/15/13 21:09:00, Stop date: 10/15/13 21:09:00 Morphine 2014-0 No 4 mg, Memoria 3-19 Route: l 02:09: IVP, ONCE, Dosing Weight 104.545, kg, Priority: STAT, Start date: 10/15/13 21:09:00, Stop date: 10/15/13 21:09:00 Ketorolac 2014-0 No 30 mg, Memori a 3-19 Route: l 02:09: IVP, ONCE, Dosing Weight 104.545, kg, Priority: STAT, Start date: 10/15/13 21:09:00, Stop date: 10/15/13 21:09:00 Orphenadrin 2014-0 No 60 mg, Syd villa e 3-19 Route: IV, l 02:09: ONCE, Dosing Weight 104.545, kg, Priority: STAT, Start date: 10/15/13 21:09:00, Stop date: 10/15/13 21:09:00 Zofran 2014-0 No 4 mg, Memoria 3-19 Route: l 02:09: IVP, ONCE, Dosing Weight 104.545, kg, Start date: 10/15/13 21:09:00, Stop date: 10/15/13 21:09:00 Morphine 2014-0 No 4 mg, Memoria 3-19 Route: l 02:09: IVP, ONCE, Shel[place] Dosing Weight 104.545, kg, Priority: STAT, Start date: 10/15/13 21:09:00, Stop date: 10/15/13 21:09:00 Ketorolac 2014-0 No 30 mg, Memori a 3-19 Route: l 02:09: IVP, ONCE, Shady Dosing Weight 104.545, kg, Priority: STAT, Start date: 10/15/13 21:09:00, Stop date: 10/15/13 21:09:00 Orphenadrin 2014-0 No 60 mg, Syd villa e 3- Route: IV, l 02:09: ONCE, Shady Dosing Weight 104.545, kg, Priority: STAT, Start date: 10/15/13 21:09:00, Stop date: 10/15/13 21:09:00 Vital Signs Vital Name Observation Time Observation Value Comments Source Body height 2022-05-11 13:17:00 172.7 cm [facility] Body weight 2022-05-11 13:17:00 86.183 kg [facility] BMI 2022-05-11 13:17:00 28.89 kg/m2 [facility] Respitory Rate 2015-02-27 13:15:00 Memori al Shday Systolic (mm Hg) 2015-02-27 13:15:00 Syd rial [place] Heart Rate 2015-02-27 12:45:00 [facility] [place] Respitory Rate 2015-02-27 12:45:00 Memori al [place] Systolic (mm Hg) 2015-02-27 12:45:00 Syd rial [place] Respitory Rate 2015-02-27 12:30:00 Memori al [place] Heart Rate 2015-02-27 12:30:00 [facility] [place] Systolic (mm Hg) 2015-02-27 12:30:00 Syd rial [place] Heart Rate 2015-02-27 12:20:00 [facility] [place] Temperature Oral (F) 2015-02-27 12:20:00 36.4 [facility] [place] Weight 2015-02-27 11:50:00 [facility] [place] Temperature Oral (F) 2015-02-27 11:50:00 36.5 [facility] [place] Height 2015-02-27 11:50:00 170.18 cm [facility] [place] Weight 2015-02-24 13:25:00 [facility] [place] Height 2015-02-24 13:25:00 169.8 cm [facility] [place] Temperature Oral (F) 2013-10-16 04:55:00 98.4 F [facility] [place] Heart Rate 2013-10-16 04:55:00 [facility] [place] Diastolic (mm Hg) 2013-10-16 04:55:00 Mem orial [place] Respitory Rate 2013-10-16 04:55:00 Memori al [place] Systolic (mm Hg) 2013-10-16 04:55:00 Syd rial [place] Height 2013-10-16 00:40:00 170.18 cm [facility] [place] BMI Calculated 2013-10-16 00:40:00 Memori al [place] Respitory Rate 2013-10-16 00:40:00 Memori al [place] Heart Rate 2013-10-16 00:40:00 [facility] [place] Diastolic (mm Hg) 2013-10-16 00:40:00 Mem orial [place] Systolic (mm Hg) 2013-10-16 00:40:00 Syd rial [place] Temperature Oral (F) 2013-10-16 00:40:00 98.6 F [facility] [place] Weight 2013-10-16 00:40:00 [facility] [place] Procedures Procedure Date / Time Performing Clinician Source Performed OCT, OPTIC NERVE - OU - 2022-05-11 13:35:56 [facility] BOTH EYES AUTOMATED VISUAL FIELD, 2022-05-11 13:35:52 [facility] EXTENDED - OU - BOTH EYES COLONOSCOPY FLEXIBLE; 2015-02-27 12:06:00 Matthew You Shady DIAGNOSTIC; INCL. COLLECTION OF SPECIMENS 41329 (N/A)<sup>1</sup> Ovarian cystectomy [facility] rekha [facility] TAMIKA<sup>2</sup> [facility]ST REMOVAL [facility] Plan of Care Planned Activity Planned Date Details Comments Source Future Scheduled 2022-08-25 COVID-[address] [facility] Test 19:45:09 (#1) [code = COVID-19 VACCINE (#1)] Future Scheduled 2022-08-25 [facility] 19[facility]45[facility]09 screening (procedure) [code = 137229976] Future Scheduled 2022-08-25 [facility] Test 19:45:09 malignant neoplasm of cervix (procedure) [code = 032427500] Future Scheduled 2022-08-25 [facility]ACCINE [facility] 19:45:09 [code = INFLUENZA VACCINE] Encounters Start End Encounter Admission Attending Care Care Encounter Source Date/Time Date/Time Type Type Clinicians Facility Department ID 2022-02-01 Outpatient [facility] [id number] [place] 08:16:52 [id number] [facility] 2022-01-29 Outpatient CARHILL, [facility] [id number] [place] 03:31:52 CIRO [id number] [facility] 2022-01-28 Outpatient CARHILL, [facility] [id number] [place] 09:09:25 CIRO [id number] [facility] 2022-01-19 Outpatient CARHILL, [facility] [id number] [place] 13:17:16 CIRO [id number] [facility] 2021-11-04 Outpatient CARHILL, [facility] [id number] [place] 16:12:28 CIRO [id number] [facility] 2022-07-08 2022-07-08 Emergency E BARTSOFF, [facility]SE [id number] 10:49:00 13:12:00 [facility] 2022-05-20 2022-05-20 Telephone Thrasher 1.2.840.1 [id number] Methodi 00:00:00 00:00:00 Madhuri, [address]391.1.[address] Nataly 3.430.2.7 Hospit a Tiff .3.090391 l .8 2022-05-20 2022-05-20 Orders Thrasher 1.2.840.1 [id number] Methodi 00:00:00 00:00:00 Only Madhuri, [address]13.1.[address] Nataly 3.430.2.7 Hospit a Tiff .3.981310 l .8 2022-05-16 2022-05-16 Telephone Alisa Tobar 1.2.840.1 [id number] Methodi 00:00:00 00:00:[address] 3.430.2.7 Hospit a .3.519483 l .8 2022-05-11 2022-05-11 Office Alisa Tobar 1.2.840.1 [id number] Methodi 08:00:00 10:36:03 [place] [address].1.[address] 3.430.2.7 Hospit a .3.274066 l .8 2022-05-11 2022-05-11 Outpatient ALISA TOBAR [facility] [id number] [place] 00:00:00 00:00:[address] 2021-06-21 2021-06-21 [id number] [facility] 12:00:00 12:00:[address] [place] [address] 2021-05-08 2021-05-08 Outpatient PRIV PRIV [id number] 1-2 [facility] 00:00:00 00:00:00 [id number] [facility] j[facility]min 2015-02-27 2015-02-27 Outpatient 2.16.840. 2.16.840.1. 2 [id number] Memoria 06:09:20 07:57:00 1.456786. 861815.3.20 l 3.20 81.1999 Jeremy n [address] [facility] 2015-02-27 2015-02-27 Outpatient nullFlavo [facility] [id number] Memoria 06:09:20 07:57:00 angela Caruso 2015-02-27 2015-02-27 Outpatient nullFlavo [facility] [id number] Memoria 06:09:20 07:57:00 angela Caruso 2015-01-16 2015-01-16 Outpatient 2.16.840. 2.16.840.1. 2 [id number] Memoria 08:38:32 23:59:59 1.526886. 778823.3.20 l .20 81.1999 Jeremy n [address] [facility] 2015-01-16 2015-01-16 Outpatient nullFlavo [facility] [id number] Memoria 08:38:32 23:59:59 r jasmin Caruso 2015-01-16 2015-01-16 Outpatient nullFlavo [facility] [id number] Memoria 08:38:32 23:59:59 r jasmin Caruso 2013-10-16 2013-10-16 EC nullFlavo [facility] [id number] Memoria 00:33:00 05:26:00 Emergency r Shady [id number] l [place] 4 [facility] 2013-10-16 2013-10-16 EC nullFlavo [facility] [id number] Memoria 00:33:00 05:26:00 Emergency r Shady [id number] [facility] [place] 4 [facility] 2013-10-15 2013-10-16 Outpatient Earle Ayers 2.16.840. 2.16.840. 1. [id number] 19:33:00 00:26:00 Rodrigue 1.608725. 758661.3.61 02 3.615.0.1 5.0.101 01 Results Test Description Test Time Test Comments Results Result Comments Source LABORATORY 2015-02-27 11:38:00 Test Item Value Reference Range Interpretation Comme nts urine beta hcg (test code = urine Negative, Control Present (2014 beta hcg) 06:38:00) [facility]VAN[facility]WTGT7927-91-43 11:38:00 Test Item Value Reference Range Interpretation Comments urine beta hcg (test Negative, Control code = urine beta hcg) Present (02/27/2015 06:38:00) [facility]APTDZ[facility]OPC2606-09-24 02:20:00 Test Item Value Reference Range Interpretation Comments AGAP (test code = AGAP) 9.0 10.0-20.0 [facility] HospitalBpnfrhtVQFCZGJBYKEA3560-23-81 02:20:00 Test Item Value Reference Range Interpretation Comments B/C Ratio (test code = B/C Ratio) 17 6-25 [facility] HospitalHpsonofALJISDXIDBVI9369-93-60 02:20:00 Test Item Value Reference Range Interpretation Comments Globulin (test code = Globulin) 3.7 2.0-4.0 [facility] HospitalQlsbkdcMEXMLMUINNRK9849-65-00 02:20:00 Test Item Value Reference Range Interpretation Comments A/G Ratio (test code = A/G Ratio) 1.0 0.7-1.6 [facility] HospitalKupwxmcJEDBKCVHUJJL3206-48-10 02:20:00 Test Item Value Reference Range Interpretation Comments eGFR (test code = eGFR) 129 [facility] HospitalJyrsrkjDMLXCOMVZRQM9524-71-17 02:20:00 Test Item Value Reference Range Interpretation Comments BUN (test code = BUN) 10 7-22 [facility] HospitalFulodwrTLACSAYKUMHU6018-15-60 02:20:00 Test Item Value Reference Range Interpretation Comments Creatinine Lvl (test code = Creatinine 0.6 0.5-1.4 Lvl) [facility] HospitalAwrmydcTKWLTFYYWIKB5443-43-15 02:20:00 Test Item Value Reference Range Interpretation Comments Glucose Lvl (test code = Glucose Lvl) 80 70-99 [facility] HospitalXtbhupbKUVRITYFKAKI5242-96-62 02:20:00 Test Item Value Reference Range Interpretation Comments Sodium Lvl (test code = Sodium Lvl) 140 135-145 [facility] HospitalLntgjotQUCUPFGTIXZU8708-62-17 02:20:00 Test Item Value Reference Range Interpretation Comments Potassium Lvl (test code = Potassium 4.0 3.5-5.1 Lvl) [facility] HospitalWghhtndTVTUAGVROOXQ9161-13-90 02:20:00 Test Item Value Reference Range Interpretation Comments CO2 (test code = CO2) 26 24-32 [facility] HospitalZbnoqpbKROBXUKQYGHI2171-51-78 02:20:00 Test Item Value Reference Range Interpretation Comments Calcium Lvl (test code = Calcium Lvl) 8.9 8.5-10.5 [facility] HospitalGgedkirMZPPOANTKRTP1978-20-04 02:20:00 Test Item Value Reference Range Interpretation Comments Total Protein (test code = Total 7.4 6.4-8.4 Protein) [facility] HospitalLsyidsmDKPNYBATRQZE7134-77-43 02:20:00 Test Item Value Reference Range Interpretation Comments Chloride Lvl (test code = Chloride Lvl) 109 95-109 [facility] HospitalKowfbbkJCWOWRZIVWYR5892-24-67 02:20:00 Test Item Value Reference Range Interpretation Comments Albumin Lvl (test code = Albumin Lvl) 3.7 3.5-5.0 [facility] HospitalLsfzxyqNCRPGWSMLLKN1824-80-21 02:20:00 Test Item Value Reference Range Interpretation Comments ALANINE AMINOTRANSFERASE 93 See_Comment [A utomated message] (test code = ALANINE The sys tem which AMINOTRANSFERASE) generated this result transmitted ref erence range: <=65. Th e reference range was not used to int erpret this result as normal/abnormal . [facility] HospitalZrehykwMXHPQWIYSJUS0959-86-65 02:20:00 Test Item Value Reference Range Interpretation Comments Alk Phos (test code = Alk Phos) 47 39-136 [facility] HospitalRdveqmjFFXJQHLPVOVB4620-00-68 02:20:00 Test Item Value Reference Range Interpretation Comments Bili Total (test code = Bili Total) 0.3 0.2-1.3 [facility] HospitalSsjsrzyMNXUOQLSIIFP6583-63-96 02:20:00 Test Item Value Reference Range Interpretation Comments ASPARTATE TRANSAMINASE 117 See_Comment [Aut omated message] (test code = ASPARTATE The s ystem which TRANSAMINASE) generated this result transmitted ref erence range: <=37. Th e reference range was not used to interpr et this result as normal/abnormal . [facility] [place] [facility]LfhtrmlAIBQTPVFMD4492-86-05 02:20:00 Test Item Value Reference Range Interpretation Comments Anisocyte (test code = 1+ *ABN*(10/15/2013 Anisocyte) 21:20:00 [facility] [place] [facility]EwkwlfjJCAKTEWUFM0563-67-36 02:20:00 Test Item Value Reference Range Interpretation Comments Basophils # (test code 0.0 See_Comment [Aut omated message] The = Basophils #) system which generated this result tra nsmitted reference range : <=0.2. The reference r camryn was not used to int erpret this result as normal/abnormal . [facility] [place] [facility] SoutheastSwtlukwACUCYGHRGM8346-04-74 02:20:00 Test Item Value Reference Range Interpretation Comments Lymphocytes (test code = Lymphocytes) 18.6 20.0-40.0 [facility] [place] [facility] SoutheastJnlwhatVIHBOKVPKB3885-50-77 02:20:00 Test Item Value Reference Range Interpretation Comments Segs (test code = Segs) 67.4 45.0-75.0 [facility] [place] [facility] SoutheastFucmajgPJAMQPMFMK0397-94-82 02:20:00 Test Item Value Reference Range Interpretation Comments Plt Morph (test code = Normal (10/15/2013 Plt Morph) 21:20:00 [facility] [place] [facility] SoutheastZokrvurXVDXMYTJMG1872-75-80 02:20:00 Test Item Value Reference Range Interpretation Comments Eosinophils (test code = 1.7 See_Comment [A utomated message] The Eosinophils) system which ge nerated this result tra nsmitted reference range : <=4.0. The reference r camryn was not used to int erpret this result as normal/abnormal . [facility] [place] [facility] SoutheastFtwspxoMBDWREAXRP7632-31-69 02:20:00 Test Item Value Reference Range Interpretation Comments Monocytes (test code = Monocytes) 12.2 2.0-12.0 [facility] [place] [facility] SoutheastFqydfizWGACPGQCRY2052-96-72 02:20:00 Test Item Value Reference Range Interpretation Comments Segs-Bands # (test code = Segs-Bands #) 6.4 1.5-8.1 [facility] [place] [facility] SoutheastTxujlxqLXIDLKCNBH0563-82-13 02:20:00 Test Item Value Reference Range Interpretation Comments Basophils (test code = 0.1 See_Comment [Aut omated message] The Basophils) system which ge nerated this result tra nsmitted reference range : <=1.0. The reference r camryn was not used to int erpret this result as normal/abnormal . [facility] [place] [facility] SoutheastGvggnihRDGZEVIUKJ9269-05-97 02:20:00 Test Item Value Reference Range Interpretation Comments Monocytes # (test code 1.2 See_Comment [Aut omated message] The = Monocytes #) system which generated this result tra nsmitted reference range : <=0.8. The reference r camryn was not used to int erpret this result as normal/abnormal . [facility] [place] [facility] SoutheastTqivznoUFXEATPCET1812-11-04 02:20:00 Test Item Value Reference Range Interpretation Comments Lymphocytes # (test code = Lymphocytes 1.8 1.0-5.5 #) [facility] [place] [facility] SoutheastVqfwsgjFAZTCNCJZT4673-71-72 02:20:00 Test Item Value Reference Range Interpretation Comments Eosinophils # (test code 0.2 See_Comment [A utomated message] The = Eosinophils #) system whic h generated this result tra nsmitted reference range : <=0.5. The reference r camryn was not used to int erpret this result as normal/abnormal . [facility] [place] [facility] SoutheastAdwxqaxCFQJYMTILK1891-41-15 02:20:00 Test Item Value Reference Range Interpretation Comments MPV (test code = MPV) 8.8 7.4-10.4 [facility] [place] [facility] SoutheastPsqsnwnNHUAWEBELT9780-98-06 02:20:00 Test Item Value Reference Range Interpretation Comments RDW (test code = RDW) 14.5 11.5-14.5 [facility] [place] [facility] SoutheastNwdcvbfNSNSPXKWKA6110-53-22 02:20:00 Test Item Value Reference Range Interpretation Comments MCH (test code = MCH) 28.5 pg 27.0-31.0 [facility] [place] [facility] SoutheastYsmdshkXOJDZWJDCM0677-96-43 02:20:00 Test Item Value Reference Range Interpretation Comments MCHC (test code = MCHC) 32.9 32.0-36.0 [facility] [place] [facility] SoutheastVcfupzgYVOPUXNJRC9226-47-88 02:20:00 Test Item Value Reference Range Interpretation Comments MCV (test code = MCV) 86.6 81.0-99.0 [facility] [place] [facility] SoutheastGgdonohNTSILXEYWA1054-70-35 02:20:00 Test Item Value Reference Range Interpretation Comments Hgb (test code = Hgb) 13.1 12.0-16.0 [facility] [place] [facility] SoutheastGawisiuVWDDBNBMUR5970-04-31 02:20:00 Test Item Value Reference Range Interpretation Comments RBC X 10x6 (test code = RBC X 10x6) 4.61 4.20-5.40 [facility] [place] [facility] SoutheastWcfkposFMNFFTAOVX8804-85-24 02:20:00 Test Item Value Reference Range Interpretation Comments Hct (test code = Hct) 40.0 36.0-48.0 [id number] 02:20:00 Test Item Value Reference Range Interpretation Comments Platelet (test code = Platelet) 256 133-450 [facility] Southea[id number] 02:20:00 Test Item Value Reference Range Interpretation Comments WBC X 10x3 (test code = WBC X 10x3) 9.6 3.7-10.4 [facility] HospitalTuodlrgQZWHJCZJIJHK2507-06-55 02:20:00 Test Item Value Reference Range Interpretation Comments AGAP (test code = AGAP) 9.0 10.0-20.0 [facility] HospitalKqfyznkLGAGRBEJZDJE3156-72-00 02:20:00 Test Item Value Reference Range Interpretation Comments B/C Ratio (test code = B/C Ratio) 17 6-25 [facility] HospitalMqmlrmbXTSRBQKXCLBX2830-62-39 02:20:00 Test Item Value Reference Range Interpretation Comments Globulin (test code = Globulin) 3.7 2.0-4.0 [facility] HospitalOlyrbwhPWWNDICDDGNJ4614-29-96 02:20:00 Test Item Value Reference Range Interpretation Comments A/G Ratio (test code = A/G Ratio) 1.0 0.7-1.6 [facility] HospitalOfmkwrdIWNGXJUSVOAZ7381-35-01 02:20:00 Test Item Value Reference Range Interpretation Comments eGFR (test code = eGFR) 129 [facility] HospitalOnfjswlODDTRMFOODXH8789-62-67 02:20:00 Test Item Value Reference Range Interpretation Comments BUN (test code = BUN) 10 7-22 [facility] HospitalXrwffphNHBNGHQMOSEG6720-63-69 02:20:00 Test Item Value Reference Range Interpretation Comments Creatinine Lvl (test code = Creatinine 0.6 0.5-1.4 Lvl) [facility] HospitalZwvpkppTMZACKURAIPG3775-86-96 02:20:00 Test Item Value Reference Range Interpretation Comments Glucose Lvl (test code = Glucose Lvl) 80 70-99 [facility] HospitalBtqpdewZZSZWCBLEKNW2207-26-06 02:20:00 Test Item Value Reference Range Interpretation Comments Sodium Lvl (test code = Sodium Lvl) 140 135-145 [facility] HospitalPsaosiiAKACXOQEAUUV5064-99-80 02:20:00 Test Item Value Reference Range Interpretation Comments Potassium Lvl (test code = Potassium 4.0 3.5-5.1 Lvl) [facility] HospitalAgspvxcOHORBDYAJGYQ8155-55-21 02:20:00 Test Item Value Reference Range Interpretation Comments CO2 (test code = CO2) 26 24-32 [facility] HospitalRuyzhwcRZZGJJTXNJUB4308-71-41 02:20:00 Test Item Value Reference Range Interpretation Comments Calcium Lvl (test code = Calcium Lvl) 8.9 8.5-10.5 [facility] HospitalKxgwumwNCXZRVKJKVLF1321-61-53 02:20:00 Test Item Value Reference Range Interpretation Comments Total Protein (test code = Total 7.4 6.4-8.4 Protein) [facility] HospitalNtiackvWPXUQICHLHHD0040-28-78 02:20:00 Test Item Value Reference Range Interpretation Comments Chloride Lvl (test code = Chloride Lvl) 109 95-109 [facility] HospitalZiwmjwiDZSUSKKAFPUG0193-71-69 02:20:00 Test Item Value Reference Range Interpretation Comments Albumin Lvl (test code = Albumin Lvl) 3.7 3.5-5.0 [facility] HospitalKijrnsdDVHJZCJQHQPA7241-32-27 02:20:00 Test Item Value Reference Range Interpretation Comments ALANINE AMINOTRANSFERASE 93 See_Comment [A utomated message] (test code = ALANINE The sys tem which AMINOTRANSFERASE) generated this result transmitted ref erence range: <=65. Th e reference range was not used to int erpret this result as normal/abnormal . [facility] HospitalAzutlpqRSKCFBESAKHO1913-56-70 02:20:00 Test Item Value Reference Range Interpretation Comments Alk Phos (test code = Alk Phos) 47 39-136 [facility] HospitalZpkgbeqAKANLACWIKJH8470-06-68 02:20:00 Test Item Value Reference Range Interpretation Comments Bili Total (test code = Bili Total) 0.3 0.2-1.3 [facility] HospitalSicmzszVKKISRQPLJYI8010-01-45 02:20:00 Test Item Value Reference Range Interpretation Comments ASPARTATE TRANSAMINASE 117 See_Comment [Aut omated message] (test code = ASPARTATE The s ystem which TRANSAMINASE) generated this result transmitted ref erence range: <=37. Th e reference range was not used to interpr et this result as normal/abnormal . [facility] SoutheastVjmqmonVWUWXCOETT5765-11-78 02:20:00 Test Item Value Reference Range Interpretation Comments Anisocyte (test code = 1+ *ABN*(10/15/2013 Anisocyte) 21:20:00 [facility]/[place]) [facility]SmmqkgnQXIXYANWDV6778-78-69 02:20:00 Test Item Value Reference Range Interpretation Comments Basophils # (test code 0.0 See_Comment [Aut omated message] The = Basophils #) system which generated this result tra nsmitted reference range : <=0.2. The reference r camryn was not used to int erpret this result as normal/abnormal . [facility] SoutheastInebjmpVYFISHEWMX3446-04-93 02:20:00 Test Item Value Reference Range Interpretation Comments Lymphocytes (test code = Lymphocytes) 18.6 20.0-40.0 [facility] SoutheastBrqdhhbHUSAGFDBWP3572-48-60 02:20:00 Test Item Value Reference Range Interpretation Comments Segs (test code = Segs) 67.4 45.0-75.0 [facility] SoutheastHsxoefpZZRUINBERP9128-98-83 02:20:00 Test Item Value Reference Range Interpretation Comments Plt Morph (test code = Normal (10/15/2013 Plt Morph) 21:20:00 [facility]) [facility] SoutheastJfkdjylTUERBBRYHQ8560-58-91 02:20:00 Test Item Value Reference Range Interpretation Comments Eosinophils (test code = 1.7 See_Comment [A utomated message] The Eosinophils) system which ge nerated this result tra nsmitted reference range : <=4.0. The reference r camryn was not used to int erpret this result as normal/abnormal . [facility] SoutheastLzdvplmRWPQVPKMCP7813-29-41 02:20:00 Test Item Value Reference Range Interpretation Comments Monocytes (test code = Monocytes) 12.2 2.0-12.0 [facility] SoutheastInntxsoYCRFAOHYGL2570-54-92 02:20:00 Test Item Value Reference Range Interpretation Comments Segs-Bands # (test code = Segs-Bands #) 6.4 1.5-8.1 [facility] SoutheastDqowvtaTTWSMVVFCF0657-12-10 02:20:00 Test Item Value Reference Range Interpretation Comments Basophils (test code = 0.1 See_Comment [Aut omated message] The Basophils) system which ge nerated this result tra nsmitted reference range : <=1.0. The reference r camryn was not used to int erpret this result as normal/abnormal . [facility] SoutheastYskxtheTIOXUIGTVE0906-22-13 02:20:00 Test Item Value Reference Range Interpretation Comments Monocytes # (test code 1.2 See_Comment [Aut omated message] The = Monocytes #) system which generated this result tra nsmitted reference range : <=0.8. The reference r camryn was not used to int erpret this result as normal/abnormal . [facility] SoutheastXnnzsdaMPZXHTKJKY2171-83-16 02:20:00 Test Item Value Reference Range Interpretation Comments Lymphocytes # (test code = Lymphocytes 1.8 1.0-5.5 #) [facility] SoutheastFpjzcrmPXFBBPGWMI5164-71-17 02:20:00 Test Item Value Reference Range Interpretation Comments Eosinophils # (test code 0.2 See_Comment [A utomated message] The = Eosinophils #) system whic h generated this result tra nsmitted reference range : <=0.5. The reference r camryn was not used to int erpret this result as normal/abnormal . [facility] SoutheastWhymzhmQXNUQCZUSK7766-20-24 02:20:00 Test Item Value Reference Range Interpretation Comments MPV (test code = MPV) 8.8 7.4-10.4 [facility] SoutheastYtmmweiHHZKLQEQAD8984-94-41 02:20:00 Test Item Value Reference Range Interpretation Comments RDW (test code = RDW) 14.5 11.5-14.5 [facility] SoutheastYlfprieGCFNZMPBFV6718-46-68 02:20:00 Test Item Value Reference Range Interpretation Comments MCH (test code = MCH) 28.5 pg 27.0-31.0 [facility] SoutheastXnpkigtIEOETOOJDU0962-81-92 02:20:00 Test Item Value Reference Range Interpretation Comments MCHC (test code = MCHC) 32.9 32.0-36.0 [facility] SoutheastAvrvfdaKEBZPFJNWS3224-34-34 02:20:00 Test Item Value Reference Range Interpretation Comments MCV (test code = MCV) 86.6 81.0-99.0 [facility] SoutheastQxihisuWPJMTNTPIM8015-13-33 02:20:00 Test Item Value Reference Range Interpretation Comments Hgb (test code = Hgb) 13.1 12.0-16.0 [facility] SoutheastIzipcjoTEREATPPTE7217-10-90 02:20:00 Test Item Value Reference Range Interpretation Comments RBC X 10x6 (test code = RBC X 10x6) 4.61 4.20-5.40 [facility] SoutheastPqnxiteCGOLWCWEYN7659-03-87 02:20:00 Test Item Value Reference Range Interpretation Comments Hct (test code = Hct) 40.0 36.0-48.0 [facility] SoutheastCzxopubMJERVVSIFY3052-54-95 02:20:00 Test Item Value Reference Range Interpretation Comments Platelet (test code = Platelet) 256 133-450 [facility] SoutheastHwzxaqdXRZBLNFHJI7185-40-97 02:20:00 Test Item Value Reference Range Interpretation Comments WBC X 10x3 (test code = WBC X 10x3) 9.6 3.7-10.4 [facility] AND [id number] 00:50:00 Test Item Value Reference Range Interpretation Comments UA RBC (test code = 3-5 /HPF See_Comment [Automa jerardo message] The UA RBC) system which ge nerated this result tra nsmitted reference range : <=2. The reference range was not used to interpr et this result as mary alice l/abnormal. [facility] AND [id number] 00:50:00 Test Item Value Reference Range Interpretation Comments UA Mucus (test code = UA Mucus) Moderate /LPF [facility] AND [id number] 00:50:00 Test Item Value Reference Range Interpretation Comments UA Bacteria (test code = UA Occasional /HPF Bacteria) [facility] AND [id number] 00:50:00 Test Item Value Reference Range Interpretation Comments UA WBC (test code = UA WBC) 3-5 /HPF [facility] [id number] 00:50:00 Test Item Value Reference Range Interpretation Comments UA Sq Epi (test code = UA Sq Epi) Few /LPF [facility] AND [id number] 00:50:00 Test Item Value Reference Range Interpretation Comments UA Spec Grav (test >=1.030 code = UA Spec Grav) *ABN*(10/15/2013 19:50:00 [place]) [facility] AND [id number] 00:50:00 Test Item Value Reference Range Interpretation Comments UA Turbidity (test code = Clear (10/15/2013 UA Turbidity) 19:50:00 [place]) [facility] AND [id number] 00:50:00 Test Item Value Reference Range Interpretation Comments UA Color (test code = Yellow *NA*(10/15/2013 UA Color) 19:50:00 [place]) [facility] AND [id number] 00:50:00 Test Item Value Reference Range Interpretation Comments UA Glucose (test code Negative (10/15/2013 = UA Glucose) 19:50:00 [place]) [facility] AND [id number] 00:50:00 Test Item Value Reference Range Interpretation Comments UA pH (test code = UA pH) 6.0 1 5.0-8.0 [facility] AND [id number] 00:50:00 Test Item Value Reference Range Interpretation Comments UA Protein (test code = Trace UA Protein) *ABN*(10/15/2013 19:50:00 [place]) [facility] AND [id number] 00:50:00 Test Item Value Reference Range Interpretation Comments UA Leuk Est (test Negative (10/15/2013 code = UA Leuk Est) 19:50:00 [place] [id number] 00:50:00 Test Item Value Reference Range Interpretation Comments UA Nitrite (test code Negative (10/15/2013 = UA Nitrite) 19:50:00 [place] AND [id number] 00:50:00 Test Item Value Reference Range Interpretation Comments UA Blood (test code = Negative (10/15/2013 UA Blood) 19:50:00 [facility]) [facility] [id number] 00:50:00 Test Item Value Reference Range Interpretation Comments UA Urobilinogen (test code = UA 1.0 0.1-1.0 Urobilinogen) [facility] [id number] 00:50:00 Test Item Value Reference Range Interpretation Comments UA Bili (test code = Negative *NA*(10/15/2013 UA Bili) 19:50:00 [facility]) [facility] [id number] 00:50:00 Test Item Value Reference Range Interpretation Comments UA Ketones (test code Negative = UA Ketones) *NA*(10/15/2013 19:50:00 [facility]) [facility] [id number] 00:50:00 Test Item Value Reference Range Interpretation Comments U Preg (test code = U Negative (10/15/2013 Preg) 19:50:00 [facility]) [facility] [id number] 00:50:00 Test Item Value Reference Range Interpretation Comments UA RBC (test code = 3-5 /HPF See_Comment [Automa jerardo message] The UA RBC) system which ge nerated this result tra nsmitted reference range : <=2. The reference range was not used to interpr et this result as mary alice l/abnormal. [facility] [id number] 00:50:00 Test Item Value Reference Range Interpretation Comments UA Mucus (test code = UA Mucus) Moderate /LPF [facility] [id number] 00:50:00 Test Item Value Reference Range Interpretation Comments UA Bacteria (test code = UA Occasional /HPF Bacteria) [facility] [id number] 00:50:00 Test Item Value Reference Range Interpretation Comments UA WBC (test code = UA WBC) 3-5 /HPF [facility] [id number] 00:50:00 Test Item Value Reference Range Interpretation Comments UA Sq Epi (test code = UA Sq Epi) Few /LPF [facility] [id number] 00:50:00 Test Item Value Reference Range Interpretation Comments UA Spec Grav (test >=1.030 code = UA Spec Grav) *ABN*(10/15/2013 19:50:00 [place] [id number] 00:50:00 Test Item Value Reference Range Interpretation Comments UA Turbidity (test code = Clear (10/15/2013 UA Turbidity) 19:50:00 [place]) [facility] [id number] 00:50:00 Test Item Value Reference Range Interpretation Comments UA Color (test code = Yellow *NA*(10/15/2013 UA Color) 19:50:00 [place]) [facility] AND [id number] 00:50:00 Test Item Value Reference Range Interpretation Comments UA Glucose (test code Negative (10/15/2013 = UA Glucose) 19:50:00 [place]) [facility] AND [id number] 00:50:00 Test Item Value Reference Range Interpretation Comments UA pH (test code = UA pH) 6.0 1 5.0-8.0 [facility] AND [id number] 00:50:00 Test Item Value Reference Range Interpretation Comments UA Protein (test code = Trace UA Protein) *ABN*(10/15/2013 19:50:00 [place]) [facility] AND [id number] 00:50:00 Test Item Value Reference Range Interpretation Comments UA Leuk Est (test Negative (10/15/2013 code = UA Leuk Est) 19:50:00 [place]) [facility] AND [id number] 00:50:00 Test Item Value Reference Range Interpretation Comments UA Nitrite (test code Negative (10/15/2013 = UA Nitrite) 19:50:00 [place] [id number] 00:50:00 Test Item Value Reference Range Interpretation Comments UA Blood (test code = Negative (10/15/2013 UA Blood) 19:50:00 [place]) [facility] [id number] 00:50:00 Test Item Value Reference Range Interpretation Comments UA Urobilinogen (test code = UA 1.0 0.1-1.0 Urobilinogen) [facility] [id number] 00:50:00 Test Item Value Reference Range Interpretation Comments UA Bili (test code = Negative *NA*(10/15/2013 UA Bili) 19:50:00 [place]) [facility] AND [id number] 00:50:00 Test Item Value Reference Range Interpretation Comments UA Ketones (test code Negative = UA Ketones) *NA*(10/15/2013 19:50:00 [facility]) [facility] [id number] 00:50:00 Test Item Value Reference Range Interpretation Comments U Preg (test code = U Negative (10/15/2013 Preg) 19:50:00 [facility]/[place]) [facility]
[2022-08-25 20:51] LABS: Absolute Lymphocytes (CBC) 2.9 K/uL (0.7-4.9); Hematocrit 38.7 % (36.0-45.0); Lymphocytes % 25.2 % (15.3-44.8); MCV 89.8 fL (80-100); MPV 8.7 fL (7.6-11.3); RBC Red Blood Cell Count 4.31 M/uL (3.86-4.86)
[2022-08-25 21:09] LABS: Albumin 3.9 g/dL (3.4-5.0); Bilirubin Total 0.3 mg/dL (0.2-1.0); Protein, Total 7.2 g/dL (6.4-8.2)
[2022-08-25 21:10] LABS: Urine Blood Trace-lysed (Negative); Urine Glucose Negative (Negative); Urine Protein Negative (Negative); Urine Specific Gravity 1.025 (1.005-1.030)
[2022-08-25 21:22] LABS: Urine Specific Gravity/Preg 1.025 (1.005-1.030)
[2022-08-25 21:29] LABS: Urine Bacteria None Seen /HPF (<20); Urine Mucus Slight /HPF (None Seen); Urine RBC <5 /HPF (None Seen)
--- NOTE | 2022-08-25 22:24 | ER ---
Nurse's Notes [facility] Name: Angella Dean Age: 32 yrs Sex: Female : 1990 Arrival Date: 08/25/2022 Time: 19:46 Bed 8 Private MD: Diagnosis: Other hypoglycemia Presentation: 08/25 20:16 Chief complaint: Patient states: "My sugar was 42 and dropping.". Coronavirus screen: vc1 Vaccine status: Patient reports receiving the 2nd dose of the covid vaccine. Moderna plus booster. Ebola Screen: No symptoms or risks identified at this time. Initial Sepsis Screen: Does the patient meet any 2 criteria? No. Patient's initial sepsis screen is negative. Does the patient have a suspected source of infection? No. Patient's initial sepsis screen is negative. Risk Assessment: Do you want to hurt yourself or someone else? Patient reports no desire to harm self or others. Onset of symptoms was August 25, 2022 at 17:45. 20:16 Method Of Arrival: Ambulatory vc1 20:16 Acuity: TAMIKA 4 vc1 Triage Assessment: 20:19 General: Appears in no apparent distress. uncomfortable, Behavior is calm, cooperative, vc1 appropriate for age. Pain: Denies pain. EENT: No deficits noted. Neuro: Level of Consciousness is awake, alert, obeys commands, Oriented to person, place, time, situation, Appropriate for age. Cardiovascular: No deficits noted. Respiratory: Airway is patent Respiratory effort is even, unlabored, Respiratory pattern is regular, symmetrical. GI: No deficits noted. : No deficits noted. No signs and/or symptoms were reported regarding the genitourinary system. Derm: No deficits noted. No signs and/or symptoms reported regarding the dermatologic system. Musculoskeletal: No deficits noted. No signs and/or symptoms reported regarding the musculoskeletal system. 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 - Social history:: Smoking status: Patient denies any tobacco usage or history of. Screenin:33 [facility] ED Fall Risk Assessment (Adult) History of falling in the last 3 months, ll3 including since admission No falls in past 3 months (0 pts) Score/Fall Risk Level 0 - 2 = Low Risk Oriented to surroundings, Maintained a safe environment, Educated pt \\T\\ family on fall prevention, incl call for assistance when getting out of bed. Abuse screen: Denies threats or abuse. Denies injuries from another. Nutritional screening: No deficits noted. Tuberculosis screening: No symptoms or risk factors identified. Vital Signs: 20:16 BP 106 / 66; Pulse 87; Resp 18; Temp 98.7; Pulse Ox 98% ; Weight 79.38 kg; Height 5 ft. vc1 8 in. (172.72 cm); Pain 0/10; 22:34 BP 100 / 77; Pulse 82; Resp 16; Pulse Ox 100% on R/A; ll3 20:16 Body Mass Index 26.61 (79.38 kg, 172.72 cm) vc1 ED Course: 19:46 Patient arrived in ED. ja2 19:58 Niles You MD is Attending Physician. bs3 20:17 Triage completed. vc1 20:20 Arm band placed on right wrist. vc1 22:33 Patient has correct armband on for positive identification. Bed in low position. Call ll3 light in reach. Side rails up X 1. 22:33 No provider procedures requiring assistance completed. IV discontinued, intact, ll3 bleeding controlled, No redness/swelling at site. Pressure dressing applied. Administered Medications: No medications were administered Medication: 22:33 VIS not applicable for this client. ll3 Point of Care Testing: Blood Glucose: 21:35 Blood Glucose: 102 mg/dL; ll3 Ranges: Outcome: 22:24 Discharge ordered by . bs3 22:33 Discharged to home ambulatory. ll3 22:33 Condition: stable 22:33 Discharge instructions given to patient, Instructed on discharge instructions, follow up and referral plans. Demonstrated understanding of instructions, follow-up care. 22:34 Patient left the ED. ll3 Signatures: Luz Maria Vanegas ja2 Dominguez Ray RN RN ll3 Evangelina Garcia RN RN vc1 Niles You MD bs3
--- NOTE | 2022-08-25 22:25 | EDPHYS ---
Physician Documentation [facility] Name: Angella Dean Age: 32 yrs Sex: Female : 1990 Arrival Date: 08/25/2022 Time: 19:46 Bed 8 Private MD: ED Physician Niles You HPI: 08/25 20:19 This 32 yrs old Female presents to ER via Ambulatory with complaints of Low bs3 Blood Sugar. 20:19 32-year-old female history of nondiabetic hypoglycemia with a freestyle wilmar 3 system bs3 presents with multiple episodes of low glucose today. 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 20:24 Of note she does have significant weight loss over the last year previously weighing bs3 over 240 pounds. 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 - Social history:: Smoking status: Patient denies any tobacco usage or history of. ROS: 20:19 Constitutional: Negative for fever, chills Eyes: Negative for injury, pain, redness, bs3 and discharge, Neck: Negative for injury, pain, and swelling, Cardiovascular: Negative for chest pain, palpitations, and edema, Respiratory: Negative for shortness of breath, cough, wheezing Abdomen/GI: Negative for abdominal pain, nausea, vomiting, diarrhea : Negative for injury, bleeding, discharge, and swelling, MS/Extremity: Negative for injury and deformity, Neuro: Negative for headache, weakness, numbness, tingling, and seizure. Exam: 20:19 Constitutional: This is a well developed, well nourished patient who is awake, alert, bs3 and in no acute distress. Head/Face: Normocephalic, atraumatic. Eyes: Pupils equal round and reactive to light, extra-ocular motions intact. Lids and lashes normal. ENT: mmm, no posterior phyarngeal erythema Chest/axilla: Normal chest wall appearance and motion. Nontender with no deformity. No lesions are appreciated. Cardiovascular: Regular rate and rhythm with a normal S1 and S2. symmetric pulses in upper extremities Respiratory: Lungs have equal breath sounds bilaterally, clear to auscultation, no respiratory distress Abdomen/GI: Soft, non-tender, no rebound or guarding Skin: Warm, dry with normal turgor. Normal color with no rashes, no lesions, and no evidence of cellulitis. MS/ Extremity: Pulses equal, no cyanosis. Neurovascular intact. Full, normal range of motion. Neuro: Awake and alert, GCS 15, oriented to person, place, time, and situation. Cranial nerves II-XII grossly intact. Motor strength 5/5 in all extremities. Sensory grossly intact. Psych: Awake, alert, with orientation to person, place and time. Behavior, mood, and affect are within normal limits. Vital Signs: 20:16 BP 106 / 66; Pulse 87; Resp 18; Temp 98.7; Pulse Ox 98% ; Weight 79.38 kg; Height 5 ft. vc1 8 in. (172.72 cm); Pain 0/10; 22:34 BP 100 / 77; Pulse 82; Resp 16; Pulse Ox 100% on R/A; ll3 20:16 Body Mass Index 26.61 (79.38 kg, 172.72 cm) vc1 MDM: 19:58 Patient medically screened. bs3 20:22 Differential diagnosis: Efrem's syndrome, diabetes insipidus, hypoglycemic episode, bs3 Drugs, adjust insulin, insulinoma. 20:24 Consideration of Admission/Observation. ED course: We will check labs we will do serial bs3 glucose we will reassess. 22:21 ED course: pt reassessed, tolerated oral intake, she is well appearing her labs are bs3 notable for normal cbc/bmp/cortisol, she was monitoring her glucose continiously here and had no recurrent hypoglycemia, we discussed observation, but pt wanted to go home, we had a shared deciswion making conversation and she wanted to go home, advised to call her pcp tomorrow to discuss and seek urgent endocrine f/u. 22:25 Data reviewed: vital signs, nurses notes. 3 08/25 20:18 Order name: CBC with Diff; Complete Time: 21:18 3 08/25 20:18 Order name: CMP; Complete Time: 21:18 3 08/25 20:18 Order name: Cortisol; Complete Time: 22:03 3 08/25 20:18 Order name: UA MICROSCOPIC; Complete Time: 22:03 3 08/25 20:24 Order name: Ketone, Serum; Complete Time: 21:18 3 08/25 20:50 Order name: Glucose, Ancillary Testing; Complete Time: 21:18 [facility] 08/25 20:18 Order name: Urine Test (obtain specimen); Complete Time: 21:11 3 08/25 20:19 Order name: Diet Regular; Complete Time: 20:19 3 08/25 21:10 Order name: Urine Dipstick-Ancillary; Complete Time: 21:18 [facility] 08/25 21:11 Order name: Urine --Ancillary (enter results); Complete Time: 22:03 08/25 21:15 Order name: Glucose, Ancillary Testing; Complete Time: 21:18 [facility] 08/25 21:18 Order name: Accucheck Blood Glucose; Complete Time: 21:35 bs3 Administered Medications: No medications were administered Point of Care Testing: Blood Glucose: 21:35 Blood Glucose: 102 mg/dL; ll3 Ranges: Critical Glucose Levels:Adult <50 mg/dl or >400 mg/dl <40 mg/dl or >180 mg/dl Disposition Summary: 08/25/22 22:24 Discharge Ordered Location: Home bs3 Problem: an acute exacerbation bs3 Symptoms: have improved bs3 Condition: Stable bs3 Diagnosis - Other hypoglycemia bs3 Followup: bs3 - With: Private Physician - When: Tomorrow - Reason: Re-evaluation by your physician Discharge Instructions: - Discharge Summary Sheet bs3 - Hypoglycemia bs3 Forms: - Medication Reconciliation Form bs3 - Thank You Letter bs3 - Antibiotic Education bs3 - Work release form bs3 - Prescription Opioid Use bs3 Signatures: [facility] Evangelina Garcia RN RN vc1 Niles You, MD bs3
[2022-08-26 01:13] VITALS: TEMP 98.7
[2022-08-26 01:15] VITALS: BP 100/77; O2SAT 100
== END 2022-08-25 22:34 | disposition home or self-care (01) ==
LOC: ER 19:42
DX: E16.2 Hypoglycemia, unspecified (principal); Z88.8 Allergy status to other drugs, medicaments and biological substances; Z91.040 Latex allergy status; Z91.048 Other nonmedicinal substance allergy status
CPT/HCPCS: 36415; 80053; 81003; 81015; 81025; 82010; 82533; 82947; 85025; 99282